=== PATIENT | male | born 1980 | race Caucasian/White ===

== ENCOUNTER 2018-07-30 10:16 | Emergency (ER) | payer OTHER, BC ==
[~2018-07-30] VITALS: Ht 182.9 cm; Wt 102.8 kg
[~2018-07-30 10:16] MED LIST: CLIN300C8 PO; HYDR-3240 PO; NIAC125C
[2018-07-30] MEDS ORDERED: KETOROLAC 30 MG/1 ML IM ONE (11:00)
[2018-07-30] MEDS ORDERED: KETOROLAC 30 MG/1 ML ONE (11:10)
[2018-07-30 11:40] VITALS: BP 114/74
== END 2018-07-30 11:52 | disposition home or self-care (01) ==
LOC: ED 10:30
DX: M25.461 Effusion, right knee (principal); F17.200 Nicotine dependence, unspecified, uncomplicated
CPT/HCPCS: 73564; 96372; 99284; J1885

== ENCOUNTER 2021-03-08 01:44 | Emergency (ER) | payer BC, OTHER ==
[~2021-03-08] VITALS: Ht 182.9 cm; Wt 108.0 kg
[~2021-03-08 01:44] MED LIST changes: -CLIN300C8 PO; +CLIN300C9 PO; +HYDR-2214 PO; -HYDR-3240 PO
[2021-03-08] MEDS ORDERED: ONDANSETRON 2MG/ML, 2ML IVPush ONE (02:00)
[2021-03-08] MEDS ORDERED: KETOROLAC 30 MG/1 ML IVPush ONE (02:00)
[2021-03-08] MEDS ORDERED: MORPHINE SULFATE 4 MG/ML, 1ML IVPush PRN (02:00)
[2021-03-08] MEDS ORDERED: KETOROLAC 30 MG/1 ML ONE (02:02)
[2021-03-08] MEDS ORDERED: ONDANSETRON 2MG/ML, 2ML ONE (02:02)
[2021-03-08 02:40] LABS: BASOPHILS % (AUTO) 2 % (0-1); EOSINOPHILS % (AUTO) 2 % (1-7); LYMPHOCYTES % (AUTO) 34 % (22-44); MEAN CORPUSCULAR HEMOGLOBIN 32.5 pg (27.5-34.5); MEAN CORPUSCULAR HGB CONC 34.6 g/dL (33.2-36.2); MEAN PLATELET VOLUME 7.9 fL (7.4-10.4); MONOCYTES % (AUTO) 11 % (2-9); NEUTROPHILS % (AUTO) 51 % (42-75); PLATELET COUNT 263 x10^3/uL (130-400); RED BLOOD COUNT 4.72 x10^6/uL (4.38-5.82)
[2021-03-08 02:51] LABS: ALBUMIN 3.7 g/dL (3.4-5.0); ANION GAP 7 mmol/L (5-15); CALCIUM 8.6 mg/dL (8.5-10.1); CHLORIDE 110 mmol/L (98-107); CREATININE 1.14 mg/dL (0.7-1.3)
[2021-03-08 03:15] LABS: MICROSCOPIC INDICATED
[2021-03-08 04:00] VITALS: BP 113/70
== END 2021-03-08 04:18 | disposition home or self-care (01) ==
LOC: ED 02:15
DX: N20.0 Calculus of kidney (principal); F17.200 Nicotine dependence, unspecified, uncomplicated
CPT/HCPCS: 36415; 74176; 80048; 81001; 82040; 85025; 96374; 96375; 99284; J1885; J2405